=== PATIENT | female | born 1975 | race Caucasian/White ===

== ENCOUNTER 2018-06-10 18:11 | Emergency (ER) | payer OTHER ==
[~2018-06-10] VITALS: Ht 167.6 cm; Wt 126.1 kg
[~2018-06-10 18:11] MED LIST: CIPRO750 MG PO; DIPHENHYDRAMINE50 MG PO; MOTRIN800 MG PO; NORCO1 TA2 PO; OXYCODONE HYDROC5 MG PO; PILOCARPINE HCL5 MG PO; ROXICET PO; TEN25 PO; ZES20 PO
[2018-06-10 18:18] VITALS: Ht 167.6 cm; Wt 126.1 kg
[2018-06-10 20:43] LABS: BASOPHIL % 0.6 % (0-2); PLATELET COUNT 265 x10^3mcL (130-400)
[2018-06-10 20:44] LABS: CALCIUM 8.5 mg/dL (8.5-10.1); CARBON DIOXIDE 31.4 mmol/L (21-32); CHLORIDE SERUM 104 mmol/L (98-107); CREATININE SERUM 0.7 mg/dL (0.6-1.0); GFR1 > 60 mL/min; GLUCOSE SERUM 105 mg/dL (74-106); POTASSIUM SERUM 3.7 mmol/L (3.5-5.1); SODIUM SERUM 140 mmol/L (136-145)
[2018-06-10 20:46] LABS: RED CELL DISTRIBUTION WIDTH 15.3 % (11.5-14.5)
[2018-06-10 20:49] LABS: ALBUMIN 3.7 g/dL (3.4-5.0); ALKALINE PHOSPHATASE 61 U/L (46-116); ALT/SGPT 100 U/L (14-59); AST/SGOT 75 U/L (15-37); BILIRUBIN TOTAL 0.6 mg/dL (0.20-1.00); LIPASE 242 IU/L (73-393); TOTAL PROTEIN, SERUM 7.4 g/dL (6.4-8.2)
[2018-06-10 21:58] VITALS: BP 130/88
== END 2018-06-10 21:59 | disposition home or self-care (01) ==
LOC: ED 18:11
PROVIDERS: Emergency Medicine
DX: R10.9 Unspecified abdominal pain (principal); R11.10 Vomiting, unspecified; R19.7 Diarrhea, unspecified; J45.909 Unspecified asthma, uncomplicated; I10 Essential (primary) hypertension
CPT/HCPCS: J2270; J2405; J7030; Q0092

== ENCOUNTER 2019-07-02 08:51 | Emergency (ER) | payer OTHER ==
[~2019-07-02] VITALS: Ht 167.6 cm; Wt 119.7 kg
[2019-07-02 08:56] VITALS: Ht 167.6 cm; Wt 119.7 kg
[2019-07-02 09:33] VITALS: BP 127/90
== END 2019-07-02 09:33 | disposition home or self-care (01) ==
LOC: ED 08:51
DX: B34.9 Viral infection, unspecified (principal); R10.9 Unspecified abdominal pain; J45.909 Unspecified asthma, uncomplicated; I10 Essential (primary) hypertension; Z90.711 Acquired absence of uterus with remaining cervical stump; Z88.8 Allergy status to other drugs, medicaments and biological substances